=== PATIENT | female | born 1940 | race Asian ===

== ENCOUNTER 2019-02-18 11:54 | Day surgery (SDC) | payer MEDICARE, MEDICAID ==
[~2019-02-18] VITALS: Ht 149.9 cm; Wt 45.8 kg
[~2019-02-18 11:54] MED LIST: AMLO-150 PO; BUPIVACAINE/PF 0.25% ONE; CAND32TA7 PO; EPINEPHRINE 1 MG/ML, 1ML ONE; LEVO50TA5 PO; METF500T17 PO; NEOMY/POLYMYXIN B GU IRR. 1 ML ONE; [UNRECOGNIZED DRUG - OTHER] PO
[2019-02-18] MEDS ORDERED: LACTATED RINGERS 1,000 ML IV SCH (12:28)
[2019-02-18] MEDS ORDERED: ACETAMINOPHEN 500 MG TABLET PO ONE (12:30)
[2019-02-18] MEDS ORDERED: GABAPENTIN 300 MG CAPSULE PO ONE (12:30)
[2019-02-18] MEDS ORDERED: FENTANYL PF 250 MCG/5ML ONE (12:58)
[2019-02-18] MEDS ORDERED: NEOSTIGMINE 1 MG/ML, 10ML ONE (13:01)
[2019-02-18] MEDS ORDERED: ONDANSETRON 2MG/ML, 2ML ONE (13:01)
[2019-02-18] MEDS ORDERED: DEXAMETHASONE 4 MG/ML, 1ML ONE (13:01)
[2019-02-18] MEDS ORDERED: PROPOFOL 10 MG/ML, 20ML ONE (13:01)
[2019-02-18] MEDS ORDERED: CEFAZOLIN 1,000 MG ONE (13:01)
[2019-02-18] MEDS ORDERED: GLYCOPYRROLATE 0.2MG/1ML, 5ML ONE (13:01)
[2019-02-18] MEDS ORDERED: ROCURONIUM 10MG/ML,5ML ONE (13:01)
[2019-02-18] MEDS ORDERED: PROMETHAZINE 25 MG/ML, 1ML IV PRN (14:30)
[2019-02-18] MEDS ORDERED: HYDROmorphone 2 MG/ML, 1ML IVPush PRN (14:30)
[2019-02-18] MEDS ORDERED: hydrALAzine 20 MG/ML, 1ML IV PRN (14:30)
[2019-02-18] MEDS ORDERED: PROMETHAZINE 12.5 MG SUPP PR PRN (14:30)
[2019-02-18] MEDS ORDERED: LABETALOL 5MG/ML, 20ML IV PRN (14:30)
[2019-02-18] MEDS ORDERED: MORPHINE SULFATE 4 MG/ML, 1ML IVPush PRN (14:30)
[2019-02-18] MEDS ORDERED: PROMETHAZINE 25 MG/ML, 1ML IM PRN ×2 (14:30)
[2019-02-18] MEDS ORDERED: MEPERIDINE/PF 25MG/0.5ML IVPush PRN (14:30)
[2019-02-18] MEDS ORDERED: FENTANYL PF 100 MCG/2ML IV PRN (14:30)
[2019-02-18] MEDS ORDERED: PROMETHAZINE 25 MG SUPP PR PRN (14:30)
[2019-02-18] MEDS ORDERED: ONDANSETRON 2MG/ML, 2ML IV PRN ×2 (14:30→17:30)
[2019-02-18] MEDS ORDERED: OXYcodone 5 MG/5 ML ORAL.SOL UDC PO PRN (14:30)
[2019-02-18] MEDS ORDERED: ONDANSETRON ODT 8 MG PO PRN (14:30)
[2019-02-18] MEDS ORDERED: OXYcodone 5 MG/5 ML ORAL.SOL UDC ONE (16:08)
[2019-02-18] MEDS ORDERED: hydrALAzine 20 MG/ML, 1ML ONE (16:17)
[2019-02-18] MEDS ORDERED: HYDROmorphone 1 MG/ML, 1ML AMP IV PRN (17:30)
[2019-02-18] MEDS ORDERED: KETOROLAC 30 MG/1 ML IV PRN (17:30)
[2019-02-18] MEDS ORDERED: HYDROcodone/APAP 5/325 TABLET PO PRN (17:30)
[2019-02-18] MEDS ORDERED: IBUPROFEN 600 MG TABLET PO PRN (17:30)
[2019-02-18] MEDS ORDERED: OXYcodone/APAP 5/325MG TABLET PO PRN (17:30)
[2019-02-18 19:59] VITALS: BP 119/49
[2019-02-19] MEDS ORDERED: LEVOTHYROXINE 50 MCG TABLET PO SCH (06:00)
[2019-02-19] MEDS ORDERED: metFORMIN 500 MG TABLET PO SCH (08:00)
[2019-02-19] MEDS ORDERED: AMLODIPINE 5 MG TABLET PO SCH (09:00)
[2019-02-19] MEDS ORDERED: LOSARTAN 50MG TABLET PO SCH (09:00)
== END 2019-02-18 20:55 | disposition home or self-care (01) ==
LOC: OUT 11:54 → 4NOR 16:54 → OUT 20:55
PROVIDERS: ATTEND Obstetrics & Gynecology Female Pelvic Medicine and Reconstructive Surgery
DX: D25.9 Leiomyoma of uterus, unspecified (principal); N81.89 Other female genital prolapse; N81.4 Uterovaginal prolapse, unspecified; N39.46 Mixed incontinence; I12.9 Hypertensive chronic kidney disease with stage 1 through stage 4 chronic kidney disease, or unspecified chronic kidney disease; E11.22 Type 2 diabetes mellitus with diabetic chronic kidney disease; N18.9 Chronic kidney disease, unspecified; E03.9 Hypothyroidism, unspecified; Z79.899 Other long term (current) drug therapy; Z79.84 Long term (current) use of oral hypoglycemic drugs
CPT/HCPCS: 57265; 57282; 57288; 58552; 82962; 88307; 88311; C1771; J0171; J0360; J0690; J1100; J2405; J2704; J2710; J3010; J3490; J7120; G0378